=== PATIENT | female | born 1940 | race Caucasian/White ===

== ENCOUNTER 2020-02-20 15:20 | Inpatient (IN) | payer MEDICARE ==
[~2020-02-20] VITALS: Ht 162.6 cm; Wt 68.9 kg
[2020-02-20 16:26] LABS: BASOPHILS % (AUTO) 0.4 % (0.0-2.0); EOSINOPHILS % (AUTO) 0.3 % (0.0-6.0); HEMATOCRIT 41 % (39-51); HEMOGLOBIN 13.9 g/dL (13.5-17.5); LYMPHOCYTES % (AUTO) 14.3 % (20.0-44.0); MEAN CORPUSCULAR HGB CONC 34 g/dl (31.0-36.0); MEAN CORPUSCULAR VOLUME 97 fL (80-96); MONOCYTES # (AUTO) 0.7 /CMM (0.1-1.30); MONOCYTES % (AUTO) 9.5 % (2.0-12.0); NEUTROPHILS # (AUTO) 5.5 /CMM (1.8-8.9); NEUTROPHILS % (AUTO) 75.5 % (43.0-81.0); PLATELET COUNT (AUTO) 164 /CMM (150-450); RED BLOOD CELL COUNT(AUTO) 4.26 MIL/uL (4.5-6.0); WHITE BLOOD COUNT (AUTO) 7.3 K/uL (4.3-11.0)
[2020-02-20 16:34] LABS: CALCIUM, SERUM 9.4 mg/dL (8.5-10.1); CARBON DIOXIDE 25 mmol/L (21-32); CHLORIDE 101 mmol/L (98-107); CREATININE 0.7 mg/dL (0.6-1.3); GLUCOSE 109 mg/dL (74-106); POTASSIUM 3.3 mmol/L (3.5-5.1); SODIUM SERUM 137 mmol/L (136-145); UREA NITROGEN, BLOOD 13 mg/dL (7-18)
--- NOTE | 2020-02-20 16:36 | NUR ---
URINE SENT VIA STRAIGHT CATHETER.
[2020-02-20 16:49] LABS: ACETAMINOPHEN < 2 ug/ml (10-30); ALANINE AMINOTRANSFERASE 23 U/L (12-78); ALBUMIN 3.9 g/dL (3.4-5.0); ALCOHOL, BLOOD < 3 mg/dL (0-0); ALKALINE PHOSPHATASE 80 U/L (46-116); ASPARTATE AMINOTRANSFERASE 27 U/L (15-37); BILIRUBIN,DIRECT 0.2 mg/dL (0.0-0.2); BILIRUBIN,TOTAL 0.8 mg/dL (0.2-1.0); SALICYLATE 0.3 mg/dL (2.8-20.0); TOTAL PROTEIN, SERUM 6.9 g/dL (6.4-8.2)
[2020-02-20 17:28] LABS: APPEARANCE,URINE CLEAR (CLEAR); BILIRUBIN,URINE NEGATIVE (NEGATIVE); BLOOD, URINE MODERATE Ery/uL (NEGATIVE); COLOR,URINE YELLOW (YELLOW); KETONES,URINE 15 (NEGATIVE); LEUKOCYTE ESTERASE ,URINE NEGATIVE (NEGATIVE); NITRITE, URINE POSITIVE (NEGATIVE); PROTEIN,URINE NEGATIVE (NEGATIVE); UGLUCOSE NEGATIVE (NEGATIVE); UROBILINOGEN,URINE 0.2 EU/dL (0.2)
[2020-02-20] MEDS ORDERED: LOSA50TA39 PO (17:36)
--- NOTE | 2020-02-20 17:40 | NUR ---
MELVINA (SON) MOBILE NUMBER [phone]. HOME PHONE NUMBER [phone].
[2020-02-20 17:46] LABS: BACTERIA,URINE 4+ /HPF (None Seen); SQUAMOUS EPITHELIAL CELL,UR 0-2 /HPF (None Seen)
[2020-02-20] MEDS ORDERED: CEFTRIAXONE 1 G VIAL IM ONE (18:00)
[2020-02-20] MEDS ORDERED: CEFTRIAXONE 1 G VIAL ONE (18:02)
[2020-02-20] MEDS ORDERED: LIDOCAINE /MPF 1% VIAL 5 ML VIAL ONE (18:02)
--- NOTE | 2020-02-20 18:26 | NUR ---
UNABLE TO OBTAIN WILLY PSYCH BED PENDING RAPID COVID RESULT
--- NOTE | 2020-02-20 18:36 | NUR ---
NEGATIVE COVID RESULT
--- NOTE | 2020-02-20 18:40 | NUR ---
REPORT GIVEN TO GURPREET CEE AT [facility].
--- NOTE | 2020-02-20 20:09 | NUR ---
PT TRANSFERRED TO [facility] IN STABLE CONDITION
[2020-02-20] MEDS ORDERED: ZOLPIDEM TARTRATE 5 MG TABLET PO PRN (20:30)
[2020-02-20] MEDS ORDERED: BLOOD SUGAR DIAGNOSTIC 1 EACH STRIP IN ONE (20:30)
[2020-02-20] MEDS ORDERED: ACETAMINOPHEN 325 MG TABLET PO PRN (20:30)
[2020-02-20] MEDS ORDERED: LORAZEPAM 0.5 MG TABLET PO PRN (20:30)
[2020-02-21 01:30] VITALS: BP 147/82
--- NOTE | 2020-02-21 01:35 | NUR ---
GPS RN ADMITTING NOTE: ADMITTED A 79 Y/O FEMALE ON 02/20/20 @ 1999. PT IS ON A 5150 HOLD FOR DTS/GRAVELY DISABLED. PT WAS PLACED ON HOLD ON 02/20/2020 @ 1315. PER HOLD, PROFESSOR OF ARCHAEOLOGY WERE CALLED D/T PT WANDERING IN APARTMENT BUILDING, PARANOID, DISORGANIZED, THINKS NEIGHBORS ARE TRYING TO POISON HER WITH THE SAME POISON THAT WAS USED TO POISON "[place]NA [place]NA". THINKS HER FAMILY IS TRYING TO POISON HER SO SHE THROWS THEIR FOOD AWAY. PT CAN'T REMEMBER THE LAST TIME SHE SLEPT. PT WAS HEARING VOICES AND WAS DIFFICULT TO REDIRECT. UPON FACE TO FACE EVALUATION, PT PRESENTS A/O X2, BLUNTED AFFECT, CONFUSED, DISORGANIZED, HAVING AUDITORY HALLUCINATION, POOR HISTORIAN, COOPERATIVE, PASSIVE, AND REDIRECTABLE. PT SKIN ASSESSMENT DONE AND PICTURES PLACED IN CHART. PT BELONGINGS INVENTORIED AND CONTRABAND PLACED IN SAFE. PT HOME MEDICATIONS PLACED IN PHARMACY BOX. PT UNABLE TO SIGN ADMISSION PAPERS D/T MENTAL STATUS. PT DENIES SI, AT THIS TIME. PT MEDICAL HX IS HTN. PT WILL BE UNDER THE MEDICAL CARE OF NICHOLAS AND PSYCHIATRIC CARE OF DR. IRVING. BOTH HAVE BEEN INFORMED OF PT ADMISSION. PT ADVISED OF HER HOLD. PTS RIGHTS HANDBOOK AND PRESCRIPTION MEDICATION GUIDE GIVEN TO PT. BED IS IN LOCKED, LOWEST POSITION, BED ALARM IS ON. CARE PLAN STARTED, ALL PT CARE NEEDS HAVE BEEN MET AT THIS TIME. PT IS CURRENTLY SLEEPING ON HER BED. NO S/S OF DISTRESS. WILL CONTINUE TO MONITOR Q15MIN AND Q1 HR ROUNDS FOR SAFETY MOOD AND BEHAVIOR AND ENDORSE TO AM SHIFT.
--- NOTE | 2020-02-21 04:36 | NUR ---
GPS RN NOTES: CALLED [facility] TWICE AT [address] DENNIS TO RECONCILE PT MEDICATION AND ALSO TOLD HIM PT POTASSIUM LEVEL IS 3.3 AND MIGHT NEED REPLACEMENT. DR DENNIS SAID "OKAY" THAT HE WILL ADDRESS IT.
--- NOTE | 2020-02-21 06:47 | NUR ---
GPS RN CLOSING NOTES: PT AWAKE, ALERT AND ORIENTED X2. PT SLEPT 5HRS. CONFUSED, DISORIENTED, RESPONDING TO INTERNAL STIMULI, REDIRECTABLE. NO S/S OF DISTRESS. RESPIRATION EVEN AND UNLABORED WITH EQUAL RISE AND FALL OF THE SHIFT. ALL PT CARE NEEDS MET ANTICIPATED. STILL AWAITING MED RECON AND POTASSIUM REPLACEMENT ORDER BY DR DENNIS. WILL CONTINUE TO MONITOR AND ENDORSE TO AM SHIFT.
[2020-02-21 08:00] VITALS: BP 146/72
[2020-02-21] MEDS: QUETIAPINE FUMARATE 25 MG TABLET PO SCH ×2 (10:43→21:18)
[2020-02-21] MEDS: LOSARTAN POTASSIUM 50 MG TABLET PO SCH (10:44)
--- NOTE | 2020-02-21 10:44 | NUR ---
FAMILY CONTACT: SW contacted pts son Trip ([phone]) for collateral information and treatment/discharge planning. Per son, pt has been living alone all her life and states that in 2012 pt had sepsis which caused for her to be hospitalized. Son states that after that pt began exhibiting signs of OCD and bizarre behaviors. Son then stated that in 2014 pt had a stroke and began displaying symptoms of confusion. Per son, pt is a hoarder and believes that she may have Bipolar Disorder or Schizophrenia but states she has never been diagnosed. Per son, pt is hyperreligious and having visual/auditory hallucinations, delusions, and paranoia. Son states that he is currently seeking Probate Conservatorship and has a court hearing next week. Son states that he wishes for MD to sign a Capacity of Declaration form as he states pt has not seen a doctor in over a year due to paranoia. Son also states that he is trying to find placement for pt at an assisted living.
--- NOTE | 2020-02-21 12:48 | NUR ---
INITIAL DISCHARGE PLAN: Per susana Dominique ([phone]), he wishes for pt to be discharged to an assisted living. SW will help form a safe and proper discharge in collaboration with MD.
[2020-02-21 13:07] LABS: ALBUMIN 3.4 g/dL (3.4-5.0); BILIRUBIN,TOTAL 0.4 mg/dL (0.2-1.0); CALCIUM, SERUM 8.6 mg/dL (8.5-10.1); CREATININE 0.6 mg/dL (0.6-1.3); POTASSIUM 3.4 mmol/L (3.5-5.1); TOTAL PROTEIN, SERUM 6.2 g/dL (6.4-8.2)
[2020-02-21 16:00] VITALS: BP 120/54
[2020-02-21 19:46] VITALS: BP_SYST 133; BP_SYST 142; BP_DIAS 63; BP_DIAS 80
[2020-02-22 08:00] VITALS: BP 153/69
[2020-02-22] MEDS: LOSARTAN POTASSIUM 50 MG TABLET PO SCH (10:08)
[2020-02-22] MEDS: QUETIAPINE FUMARATE 25 MG TABLET PO SCH ×2 (10:09→21:09)
[2020-02-22 16:00] VITALS: BP 142/68
[2020-02-22] MEDS: LEVOFLOXACIN (250MG) 250 MG TABLET PO SCH ×2 (18:00→18:03)
--- NOTE | 2020-02-22 18:11 | NUR ---
PT. REFUSING LEVAQUIN-STATES ALLERGIC TO PCN.VERIFIED WITH PT. AND PHARM. MED LEVAQUIN AND PCN NOT RELATED,PT. STILL REFUSING MED.
--- NOTE | 2020-02-22 18:30 | NUR ---
araceli child welfare assistant notified of fact that pt. is refusing levaquin med.
[2020-02-22 20:18] VITALS: BP 152/85
[2020-02-23 08:00] VITALS: BP 148/74
[2020-02-23] MEDS: LOSARTAN POTASSIUM 50 MG TABLET PO SCH (08:32)
[2020-02-23] MEDS: QUETIAPINE FUMARATE 25 MG TABLET PO SCH ×2 (08:33→21:32)
[2020-02-23 16:00] VITALS: BP 134/68
[2020-02-23] MEDS: LEVOFLOXACIN (250MG) 250 MG TABLET PO SCH (17:21)
[2020-02-23 19:53] VITALS: BP 134/62
--- NOTE | 2020-02-24 06:56 | NUR ---
GPS RN CLOSING NOTES: PT AWAKE, ALERT AND ORIENTED X2. LAYING ON BED, CALM. MED COMPLAINT THIS SHIFT, WEEKLY SKIN CHECK DONE AND PICTURES PLACED IN PT. CHART. PT SLEPT 7HRS THIS SHIFT. NO BEHAVIORAL ISSUES THIS SHIFT. NO S/S OF DISTRESS. RESPIRATION EVEN AND UNLABORED WITH EQUAL RISE AND FALL OF THE CHEST. ALL PT CARE NEEDS MET ANTICIPATED. WILL CONTINUE TO MONITOR AND ENDORSE TO AM SHIFT.
[2020-02-24 08:00] VITALS: BP 144/76
[2020-02-24] MEDS: QUETIAPINE FUMARATE 25 MG TABLET PO SCH ×2 (09:15→21:20)
[2020-02-24] MEDS: LOSARTAN POTASSIUM 50 MG TABLET PO SCH (09:16)
[2020-02-24] MEDS: SULFAMETH/TRIMETH 800/160 MG 1 UDTAB TABLET PO SCH ×2 (13:16→21:20)
--- NOTE | 2020-02-24 15:00 | NUR ---
FAMILY CONTACT: DAMIEN contacted pts son Trip ([phone]) to provide him with updated information. DAMIEN informed him that MD is planning on discharging pt soon. SW also informed son that MD does not feel that pt lacks capacity at this time and therefore cannot assist him with capacity declaration form. DAMIEN discussed pts discharge plan and son stated he is looking into assisted living facilities as pt cannot return to her apartment and live alone and also mentioned that pt is facing eviction. SW also provided son with a list of SNF's. Son stated he needed time to digest the information and would call SW back to discuss discharge and placement.
--- NOTE | 2020-02-24 15:59 | NUR ---
INDIVIDUAL INTERVENTION: SW met with pt at bedside, pt was asleep and not easily roused by verbal cues.
[2020-02-24 16:00] VITALS: BP_SYST 148; BP_SYST 158; BP_DIAS 69; BP_DIAS 86
[2020-02-24 19:47] VITALS: BP 148/78
[2020-02-25 08:00] VITALS: BP 147/79
[2020-02-25] MEDS: SULFAMETH/TRIMETH 800/160 MG 1 UDTAB TABLET PO SCH ×2 (08:47→21:00)
[2020-02-25] MEDS: LOSARTAN POTASSIUM 50 MG TABLET PO SCH (08:47)
--- NOTE | 2020-02-25 14:52 | NUR ---
FAMILY CONTACT: DAMIEN contacted pts son Trip ([phone]) to discuss pts discharge plan. Son states he is waiting for his criminal attorney to give him a call at 1500 with an update on probate conservatorship hearing. Son states that he and sister are looking into an assisted living near their home and will follow-up with DAMIEN tomorrow to provide her with an update.
--- NOTE | 2020-02-25 15:07 | NUR ---
INDIVIDUAL INTERVENTION: SW encouraged pt to attend group milieu, pt refused stating that she rather stay in bed with "Lico" and continue praying. Pt was holding a napkin and cuddling it in her chest. Pt stated that she has been praying all day and all her prayers have been answered. Pt remains hyper methodist, confused, disorganized, and disoriented.
[2020-02-25 16:00] VITALS: BP 147/76
[2020-02-25] MEDS: QUETIAPINE FUMARATE 25 MG TABLET PO SCH (21:58)
--- NOTE | 2020-02-25 21:59 | NUR ---
GPS RN NOTE: REFUSED MEDICATION & AGGRESSIVE BEHAVIOR PT REFUSED SCHEDULED BACTRIM 800MG/160 MG PO AND SCHEDULED SEROQUEL 25MG PO @ 2157 , ADVISED THE PT 3X THE NEED FOR THE BACTRIM & SEROQUEL AND THE BENEFITS OF TAKING THE MEDICATION WELL THE RISK OF REFUSING THE MEDICATION 3X. PT CONTINUED TO REFUSE. PT WAS VERY LABILE, ATTEMPTED TO HIT STAFF PT YELLED "GET OUT GET OUT YOU'RE INTERRUPTING MY CONVERSATION IM NOT TAKING ANYTHING". PT CALMED DOWN AND WENT BACK TO TALKING TO SELF. WILL LET AM SHIFT KNOW AND CONTINUE TO MONITOR Q15MIN FOR SAFETY AND BEHAVIOR
[2020-02-26 08:00] VITALS: BP 145/51
[2020-02-26] MEDS: LOSARTAN POTASSIUM 50 MG TABLET PO SCH (09:00)
[2020-02-26] MEDS: SULFAMETH/TRIMETH 800/160 MG 1 UDTAB TABLET PO SCH ×2 (09:00→21:00)
--- NOTE | 2020-02-26 09:54 | NUR ---
GPS RN NOTE: PT REFUSED AM MEDICATIONS EXPLAIN RISK AND BENEFITS X3 PATIENT CONTINUE REFUSING. WILL CONTINUE MONITORING FOR SAFETY AND BEHAVIOR Q 15 MIN
[2020-02-26] MEDS: risperiDONE 0.25 MG TABLET PO SCH ×2 (10:00→21:00)
--- NOTE | 2020-02-26 10:24 | NUR ---
FAMILY CONTACT: SW contacted pts son Trip ([phone]) to provide him with an update on pts behavior. SW informed him that pt declined and is now psychotic; responding to voices and exit seeking. SW informed him that pt is more confused and disorganized and informed him that she has been hyperreligious and focused on God. SW informed him that pt refused to take her medication last night and that MD has changed her antipsychotic medication. SW informed him that as of today there is no discharge date. Son states that he has found a board and care for pt. SW will continue communicating with son as needed.
--- NOTE | 2020-02-26 20:00 | NUR ---
GPS-RN: OPENING NOTES RECEIVED PT SITTING IN CHAIR IN THE DINING ROOM. AWAKE AND ALERT. NO ACUTE DISTRESS NOTED. PT REMAINS CONFUSED, DISORGANIZED THOUGHTS, UNCOOPERATIVE, TALKING TO SELF. REORIENTATION PROVIDED. REFUSED INITIAL VITAL SIGNS TO BE TAKEN. DESPITE OF EDUCATION PROVIDED. SAFETY PRECAUTIONS IMPLEMENTED. WILL CONTINUE TO MONITOR Q15MIN ROUNDS FOR SAFETY AND BEHAVIOR.
[2020-02-26 20:15] VITALS: BP 157/88
--- NOTE | 2020-02-26 21:20 | NUR ---
GPS-RN NOTE: MEDICATION REFUSAL PATIENT REFUSED SCHEDULED MEDS RISPERDAL AND BACTRIM FOR TONIGHT. EDUCATED PATIENT REGARDING THE IMPORTANCE OF MEDICATION COMPLIANCE BUT PATIENT CONTINUES TO REFUSE X3. PATIENT STATES "I DON'T TAKE ANYTHING FROM THE STORE". "NO, I DON'T WANT IT". WILL CONTINUE TO MONITOR FOR PATIENT'S SAFETY.
--- NOTE | 2020-02-27 06:21 | NUR ---
GPS-RN NOTE: CLOSING NOTE PATIENT REMAINS CONFUSED, PREOCCUPIED ON HER OWN THOUGHTS, LAUGHING INAPPROPRIATELY, TALKING TO THE WALL TO HERSELF, UNCOOPERATIVE, EASILY GETS AGITATED/IRRITABLE. REORIENTATION PROVIDED. SAFETY PRECAUTIONS IMPLEMENTED. WILL CONTINUE TO MONITOR FOR PT'S SAFETY. WILL ENDORSE TO THE DAY SHIFT NURSE FOR CONTINUITY OF CARE.
[2020-02-27 08:00] VITALS: BP 121/55
[2020-02-27] MEDS: LOSARTAN POTASSIUM 50 MG TABLET PO SCH (09:00)
[2020-02-27] MEDS: SULFAMETH/TRIMETH 800/160 MG 1 UDTAB TABLET PO SCH ×2 (09:00→21:00)
[2020-02-27] MEDS: risperiDONE 0.25 MG TABLET PO SCH ×2 (09:00→21:00)
--- NOTE | 2020-02-27 09:49 | NUR ---
GPS/RN-NOTES PATIENT REFUSED ALL 0900AM MEDICATIONS,DESPITE EXPLANATION RISK AND BENEFITS. OFFERED X3 BUT PATIENT SCREAM AND YELLS AT THE INVESTMENT BANKER. STATED" GO AWAY I DON'T NEED ANY MEDICATIONS AT ALL". DR. PINO MADE AWARE OF THE PT. MEDICATION REFUSAL.
--- NOTE | 2020-02-27 11:21 | NUR ---
GPS/RN-NOTES PER DR. IRVING PATIENT AGREED TO TAKE MEDICATIONS. MANAGER INSTRUMENTATION AND CHARGE NURSE DID TALK AND OFFERED MEDICATIONS AGAIN BUT PATIENT STATED" DON'T TALK TO ME DON'T TOUCH ME". DR. IRVING DID TALK AGAIN AND EXPLAINED THE IMPORTANCE OF TAKING MEDICATIONS BUT PATIENT STILL REFUSED HER MEDICATIONS. RISPERDAL 0.25MG TABLET,[id number] TAB.,AND BACTRIM DS TAB. WAS DISCARDED WITNESS BY THE CHARGE NURSE
--- NOTE | 2020-02-27 11:26 | NUR ---
FAMILY CONTACT: DAMIEN contacted pts son Trip ([phone]) to provide him with an update on pts behavior. DAMIEN informed him that pt declined and is now psychotic; responding to voices, paranoid, and refusing to take her medication. DAMIEN informed him that pt has a UTI and is also refusing to take her antibiotic. DAMIEN informed son that MD has filed a petition for a medication capacity hearing. Son stated he is in agreement with treatment plan.
--- NOTE | 2020-02-27 11:30 | NUR ---
INDIVIDUAL INTERVENTION WITH MD: DAMIEN and met with pt to discuss current symptoms. Pt refused to speak with MD and pt presents paranoid and delusional with irritable/agitated mood. Pt has been refusing medication and MD filed for a RIESE Hearing.
[2020-02-27 16:00] VITALS: BP 155/88
--- NOTE | 2020-02-27 21:24 | NUR ---
GPS-RN NOTE: MEDICATION REFUSAL PATIENT REFUSED RISPERDAL AND BACTRIM ON SCHEDULE FOR TONIGHT. EDUCATED PATIENT REGARDING THE IMPORTANCE OF MEDICATION COMPLIANCE BUT PATIENT CONTINUES TO REFUSE X3. PATIENT STATES "NO, I DON'T WANT IT". WILL CONTINUE TO MONITOR FOR PATIENT'S SAFETY.
[2020-02-28 08:00] VITALS: BP 155/63
[2020-02-28] MEDS: SULFAMETH/TRIMETH 800/160 MG 1 UDTAB TABLET PO SCH ×3 (08:46→21:00)
[2020-02-28] MEDS: LOSARTAN POTASSIUM 50 MG TABLET PO SCH (08:50)
[2020-02-28] MEDS: risperiDONE 0.25 MG TABLET PO SCH (08:50)
[2020-02-28] MEDS: OLANZAPINE 2.5 MG TABLET PO SCH ×3 (12:00→20:44)
[2020-02-28] MEDS: OLANZAPINE 10 MG VIAL IM PRN ×2 (12:29→20:32)
--- NOTE | 2020-02-28 12:29 | NUR ---
GPS RN NOTES PATIENT ON ALFRED; REFUSED ORAL ZYPREXA; WAS TOLD THAT IF SHE REFUSES SHE WILL RECEIVE ZYPREXA IM. PATIENT CONTINUED TO REFUSE. IM ZYPREXA ADMINISTERED WITH THE HELP OF STAFF; PATIENT COMBATIVE, THROWING FISTS AND SCREAMING.
--- NOTE | 2020-02-28 13:47 | NUR ---
GROUP THERAPY: Pt is unable to attend group as pt is paranoid and delusional with agitated mood. Pt has not been complaint with medication and was RIESE'd on this present day. Pt is only alert and oriented x1; to self.
--- NOTE | 2020-02-28 14:47 | NUR ---
FAMILY CONTACT: DAMIEN contacted pts son Trip ([phone]) to provide him with an update on pts RIESE status. SW left a voicemail informing him that pt was RIESED and she is now receiving medication via injection as she continues to refuse PO.
--- NOTE | 2020-02-28 14:55 | NUR ---
FAMILY CONTACT: SW received a call from pts son Trip ([phone]) confirming SW voicemail. SW also informed him that SW received a call from Jamarcus Lemos, court appointed camp counselor ([phone]) who will be authorized to come assess pts mental capacity due to sons petition for probate conservatorship. Son stated that he is aware and stated he does have a court hearing next week.
--- NOTE | 2020-02-28 14:59 | NUR ---
GEOLOGICAL SCOUT: DAMIEN received a call from Jamarcus Lemos, court appointed tariff counsel ([phone]) requested permission to come assess pt for mental capacity due to her son submitting petition for probate conservatorship. DAMIEN advised him to fax court order and negative COVID test. DAMIEN also provided him with Director or Returns Clerk contact number to request permission to enter the unit.
--- NOTE | 2020-02-28 15:45 | NUR ---
SET MAKING MACHINE OPERATOR: DAMIEN received faxed documents from Jamarcus Lemos, court appointed residential child care counselor ([phone]) and placed in pts chart.
--- NOTE | 2020-02-28 20:40 | NUR ---
NURSES NOTES: PATIENT REFUSED HER NIGHT SCHEDULED MEDICATIONS. PER PATIENT " GO AWAY AND DO TOUCH ME , I DON'T TAKE ANY MEDICATIONS AT NIGHT" TIN PLATER EXPLAINED THE RISKS AND BENEFITS OF THE SAID MEDICATIONS. PATIENT CONTINUED TO REFUSED. WILL RELAY TO DAY SHIFT NURSE. WILL RELAY TO MD. Addendum: 02/28/20 at 2138 by JHON BURGOS PATIENT IS JC, FOR THE REFUSAL OF HER ZYPREXA PO MEDICATION- ZYPREXA 5MG IM GIVEN PER ORDER.
[2020-02-29 08:00] VITALS: BP 163/85
[2020-02-29] MEDS: OLANZAPINE 2.5 MG TABLET PO SCH ×2 (08:55→20:48)
[2020-02-29] MEDS: SULFAMETH/TRIMETH 800/160 MG 1 UDTAB TABLET PO SCH (08:55)
[2020-02-29] MEDS: LOSARTAN POTASSIUM 50 MG TABLET PO SCH (08:55)
[2020-02-29] MEDS: OLANZAPINE 10 MG VIAL IM PRN ×2 (08:56→20:32)
--- NOTE | 2020-02-29 08:56 | NUR ---
GPS/RN PT REFUSED PO MEDS. OFFERED X3. ZYPREXA 5MG IM GIVEN ORDERED.
[2020-02-29 09:00] VITALS: BP 163/85
--- NOTE | 2020-02-29 09:30 | NUR ---
dr. nayak aware of bp level ant the fact pt. refusing cozaar.
--- NOTE | 2020-02-29 09:30 | NUR ---
REFUSED AM MEDS INCLUDING COZAAR.BP ELEVATED.
[2020-02-29 16:00] VITALS: BP 129/77
--- NOTE | 2020-02-29 18:45 | NUR ---
NO CHANGE IN STATUS OTHER THAN APPETITE BETTER.
[2020-02-29 20:14] VITALS: BP 142/95
--- NOTE | 2020-02-29 20:49 | NUR ---
GPS RN NOTE: PT. REFUSED SCHEDULED 2100 MEDICATION ZYPREXA. PATIENT IS RIESED FOR THE REFUSAL OF HER ZYPREXA PO MEDICATION- ZYPREXA 5MG IM GIVEN PER ORDER. WILL CONTINUE TO MONITOR FOR SAFETY AND BEHAVIOR.
[2020-03-01 08:00] VITALS: BP 164/84
[2020-03-01] MEDS: OLANZAPINE 2.5 MG TABLET PO SCH ×3 (08:34→21:00)
[2020-03-01] MEDS: OLANZAPINE 10 MG VIAL IM PRN ×3 (08:34→21:38)
[2020-03-01] MEDS: LOSARTAN POTASSIUM 50 MG TABLET PO SCH (08:35)
--- NOTE | 2020-03-01 08:35 | NUR ---
RN-CO: PATIENT REFUSED TO TAKE HER AM MEDS.
[2020-03-01 16:00] VITALS: BP 123/78
--- NOTE | 2020-03-01 20:30 | NUR ---
GPS-RN NOTE: PATIENT REFUSED WEEKLY SKIN ASSESSMENT.
[2020-03-02] MEDS: LOSARTAN POTASSIUM 50 MG TABLET PO SCH (08:26)
[2020-03-02] MEDS: OLANZAPINE 2.5 MG TABLET PO SCH ×5 (08:26→21:00)
[2020-03-02] MEDS: OLANZAPINE 10 MG VIAL IM PRN ×4 (08:31→22:02)
--- NOTE | 2020-03-02 08:39 | NUR ---
RN NOTE- PT REFUSED VS AND MORNING MEDS. ZYPREXA 5MG IM GIVEN W STAFF ASSISTANCE.
--- NOTE | 2020-03-02 10:24 | NUR ---
RN NOTE- ZYPREXA 1030 DOSE HELD DUE TO RECENT ZYPREXA IM ADMINISTRATION AND SOMNOLENCE. PT SLEEPING SOUNDLY
--- NOTE | 2020-03-02 11:43 | NUR ---
DIRECT CARE COUNSELOR: met with Jamarcus Lemos, court appointed marriage counselor ([phone]) who came to assess pt for mental capacity due to her son submitting petition for probate conservatorship. Jamarcus stated that he will review the information and discuss with patient's son, Trip ([phone]).
--- NOTE | 2020-03-02 11:45 | NUR ---
RN NOTE- PT ZYPREXA ORDER CHANGED BY DR IRVING TO ZYPREXA 2.5 MG QID IF REFUSES GIVE ZYPREXA 5 MG IM. CLARIFIED DOSE W DR IRVING. CONTINUE ORDER GIVEN.
--- NOTE | 2020-03-02 12:39 | NUR ---
RN NOTE- REFUSED ZYPREXA 1300 DOSE. ZYPREXA 5 MG IM GIVEN W STAFF ASSIST
--- NOTE | 2020-03-02 13:56 | NUR ---
FAMILY CONTACT: SW spoke with patient's son Trip ([phone]) regarding patient's treatment and discharge plan and discussed Jamarcus Lemos's court appointed cosmetic counselor ([phone]) visit today. Trip provided this story writer with the information they secured for the patient's placement: [address] [address] arts administrator or manager Charisma Ryo ([phone]).
[2020-03-02 16:00] VITALS: BP 157/78
--- NOTE | 2020-03-02 19:50 | NUR ---
RECEIVED PT IN HER ROOM LAYING IN BED AWAKE. PT IS A/OX1. NO ACUTE DISTRESS NOTED. BREATHING EVEN AND UNLABORED. NO PAIN AT THIS TIME. PT IS PARANOID, FORGETFUL,CONFUSED,UNMOTIVATED, EASILY AGITATED, ANGRY, UNCOOPERATIVE. PT ON REISED. REORIENTATION PROVIDED. UPON CHECKING PTS VITALS, PT SCREAMING YELLING AND INCREASED AGITATION. B/P AND PULSE HIGH DUE TO PT YELLING AND SCREAMING WHILE CHECKING. PT REFUSED TO RETAKE VITALS V/S. PT REFUSED PRN ATIVAN FOR ANXIOUS. EXPLAIN RISKS AND BENEFITS. PT STILL REFUSED X3. PT CALM AFTER STAFF AND NURSE LEFT HER ROOM. PT QUIET AND WANTS TO BE ALONE. WILL TRY AGAIN LATER THOUGHT THE NIGHT. SAFETY PRECAUTIONS IMPLEMENTED. WILL CONTINUE TO MONITOR Q15MIN ROUNDS FOR SAFETY AND BEHAVIOR.
[2020-03-02 19:59] VITALS: BP 195/85
[2020-03-02 22:00] VITALS: BP 134/81
--- NOTE | 2020-03-02 22:17 | NUR ---
GPS RN NOTE: REFUSED ZYPREXA PO DUE. ZYPREXA 5 MG IM GIVEN W STAFF ASSIST
[2020-03-03 08:00] VITALS: BP 164/88
[2020-03-03] MEDS: OLANZAPINE 2.5 MG TABLET PO SCH (08:33)
[2020-03-03] MEDS: LOSARTAN POTASSIUM 50 MG TABLET PO SCH (08:33)
--- NOTE | 2020-03-03 09:00 | NUR ---
RN NOTE- PT CONTINUED REFUSAL OF RX DR IRVING TO SEE PT . PO INTAKE FAIR WITHDRAWN ISOLATIVE MUMBLING TO SELF
[2020-03-03] MEDS: OLANZAPINE 10 MG VIAL IM PRN ×3 (09:54→20:33)
--- NOTE | 2020-03-03 11:18 | NUR ---
RN NOTE- DR IRVING AT UNIT E[facility]LIER. DISCUSSED ZYPREXA RX, PT REFUSAL AND MEDICATION REGIMEN. DR IRVING CHANGED MEDICATION REGIMEN. ORDERS NOTED
[2020-03-03] MEDS: risperiDONE-M 0.5 MG TAB.RAPDIS PO SCH ×3 (13:00→20:30)
--- NOTE | 2020-03-03 13:54 | NUR ---
RN NOTE- PT REFUSED NEW RISPERDAL ORDER. ZYPREXA 2.5 MG GIVEN IM PER DR IRVING ORDERS.
[2020-03-03 16:00] VITALS: BP 128/57
--- NOTE | 2020-03-03 18:00 | NUR ---
RN NOTE- PT ASLEEP FOR RISPERDAL 1700 DOSE. NOT GIVEN
[2020-03-03 20:07] VITALS: BP 140/63
--- NOTE | 2020-03-03 20:38 | NUR ---
GPS RN NOTE: PT REFUSED RISPERDAL PO ORDER. VITALS CHECKED WNL. ZYPREXA 2.5 MG GIVEN IM. CONTINUE TO MONITOR.
[2020-03-04 08:00] VITALS: BP 130/88
[2020-03-04] MEDS: risperiDONE-M 0.5 MG TAB.RAPDIS PO SCH (09:00)
[2020-03-04] MEDS: LOSARTAN POTASSIUM 50 MG TABLET PO SCH (09:00)
[2020-03-04] MEDS: OLANZAPINE 10 MG VIAL IM PRN (09:45)
[2020-03-04] MEDS: HALOPERIDOL 5 MG TABLET PO SCH ×3 (12:44→21:00)
[2020-03-04] MEDS: HALOPERIDOL LACTATE INJ 5 MG/ML VIAL IM PRN ×3 (12:48→21:33)
[2020-03-04 16:00] VITALS: BP 149/72
--- NOTE | 2020-03-04 21:46 | NUR ---
RN NOTE- REFUSAL HALDOL PO MEDICATION PT REFUSED HALDOL 2.5 MG PO.AND HALDOL 2.5 MG IM GIVEN PER MD ORDERS, WILL CONTINUE TO MONITOR.
[2020-03-04 22:00] VITALS: BP 123/69
--- NOTE | 2020-03-05 06:34 | NUR ---
GPS RN NOTES: PT. RESTING IN HER ROOM, CALM NOTED AT THIS TIME . NO S/S OF DISTRESS NOTED ,NO CHANGE OF CONDITION NOTED , ALL CARE NEEDS MET ANTICIPATED. WILL CONTINUE TO MONITOR FOR SAFETY BEHAVIOR, AND ENDORSE TO AM SHIFT FOR CONTINUITY OF CARE.
[2020-03-05 08:00] VITALS: BP 152/78
--- NOTE | 2020-03-05 08:00 | NUR ---
GPS RN OPENING NOTES RECEIVED PATIENT IN BED SLEEPING BUT EASILY AROUSABLE BY NAME AND LIGHT TOUCH, PATIENT IN NO APPARENT RESPIRATORY DISTRESS NOTED. PATIENT DENIES PAIN AT THIS TIME, WILL CONTINUE TO MONITOR Q15MIN FOR SAFETY AND BEHAVIOR
[2020-03-05] MEDS: LOSARTAN POTASSIUM 50 MG TABLET PO SCH (08:57)
[2020-03-05] MEDS: HALOPERIDOL 5 MG TABLET PO SCH ×4 (08:57→21:00)
[2020-03-05] MEDS: HALOPERIDOL LACTATE INJ 5 MG/ML VIAL IM PRN ×3 (09:06→16:36)
--- NOTE | 2020-03-05 09:08 | NUR ---
GPS/RN NOTES PATIENT REFUSED HALDOL 2.5 MG 0.5 TAB AND COZAAR 50 MG 1 TAB, MEDICATION IS ALREADY OPEN AND WASTED. BP 152/78 P 69, EXPLAINED THE RISK AND BENEFITS PATIENT STILL REFUSING. WILL CONTINUE TO MONITOR.
--- NOTE | 2020-03-05 15:25 | NUR ---
GPS RN NOTES PATIENT REFUSED TO EAT BREAKFAST AND LUNCH EXPLAINED THE RISK AND BENEFITS PATIENT STILL REFUSING. WILL CONTINUE TO MONITOR.
[2020-03-05 16:00] VITALS: BP 160/96
--- NOTE | 2020-03-05 18:22 | NUR ---
GPS RN CLOSING NOTES: PATIENT KEEP GOING IN AND OUT OF THE ROOM, REMOVING THE CLOTHES WALKING THE HALLWAY NAKED AND VERBALIZING THAT SHE WANT TO GO HOME, SHE WANT TO TALK TO THE DOCTOR. PATIENT IN NO APPARENT RESPIRATORY DISTRESS NOTED. PATIENT DENIES PAIN AT THIS TIME. WILL ENDORSED TO ASSESSMENT EXPERT FOR CONTINUITY OF CARE
--- NOTE | 2020-03-05 18:35 | NUR ---
GPS RN CLOSING NOTES: PATIENT IS ON BED, PATIENT IN NO APPARENT RESPIRATORY DISTRESS NOTED. NO SIGN AND SYMPTOM OF PAIN AT THIS TIME. PATIENT IS UNCOOPERATIVE, REFUSING DINNER AND ORAL MEDICATION. PATIENT STAY IN THE BED THE WHOLE SHIFT. WILL ENDORSED TO PAEDIATRIC PHYSIOTHERAPIST FOR CONTINUITY OF CARE
[2020-03-05 19:50] VITALS: BP 161/81
[2020-03-05 23:00] VITALS: BP 135/78
--- NOTE | 2020-03-05 23:34 | NUR ---
RN NOTES : PT. MED COMPLIANT AT 2100 , PT. TOOK SCHEDULE HALDOL 2.5 MG PO , AND OFFERED FLUID AND SNACKS TOLERATED, WILL CONTINUITY WITH CARE .
--- NOTE | 2020-03-06 06:29 | NUR ---
GPS RN NOTES: PT. RESTING IN HER ROOM, CALM NOTED AT THIS TIME . NO S/S OF DISTRESS NOTED ,NO CHANGE OF CONDITION NOTED , ALL CARE NEEDS MET ANTICIPATED. PT. WAS PO MED COMPLIANT ,WILL CONTINUE TO MONITOR FOR SAFETY BEHAVIOR, AND ENDORSE TO AM SHIFT FOR CONTINUITY OF CARE.
[2020-03-06 08:00] VITALS: BP 154/78
[2020-03-06] MEDS: LOSARTAN POTASSIUM 50 MG TABLET PO SCH (08:50)
[2020-03-06] MEDS: HALOPERIDOL 5 MG TABLET PO SCH ×4 (08:50→20:45)
--- NOTE | 2020-03-06 09:00 | NUR ---
RN NOTE- PT QUIET, ISOLATIVE MED COMPLIANT THIS MORNING PO INTAKE FAIR MINIMAL INTERACTION REFUSES TO ANSWER QUESTIONS WITHDRAWN
[2020-03-06 16:00] VITALS: BP 147/81
[2020-03-06 19:54] VITALS: BP 143/69
--- NOTE | 2020-03-06 21:50 | NUR ---
RN NOTE- PT. CALM COOPERTIVE AT THIS TIME, NO ACUTE DISTRESS NOTED QUIET, ISOLATIVE ,WITHDRAWN ,MED COMPLIANT, OFFERED PO INTAKE TOLERATED, MINIMAL INTERACTION , WILL CONTINUE WITH CARE
--- NOTE | 2020-03-07 06:57 | NUR ---
GPS RN NOTES: PT. RESTING IN HER ROOM, CALM NOTED AT THIS TIME . NO S/S OF DISTRESS NOTED ,NO CHANGE OF CONDITION NOTED , ALL CARE NEEDS MET ANTICIPATED. AND PO MED COMPLIANT ,WILL CONTINUE TO MONITOR FOR SAFETY BEHAVIOR, AND ENDORSE TO AM SHIFT FOR CONTINUITY OF CARE.
[2020-03-07 08:00] VITALS: BP 157/82
[2020-03-07] MEDS: LOSARTAN POTASSIUM 50 MG TABLET PO SCH (10:19)
[2020-03-07] MEDS: HALOPERIDOL 5 MG TABLET PO SCH ×4 (10:20→21:31)
[2020-03-07 16:00] VITALS: BP 151/63
--- NOTE | 2020-03-07 18:30 | NUR ---
APPEARS TO BE ASLEEP AT PILL TIME,RN SPOKE FIRMLY,PT. AWAKE AND MEDS GIVEN
[2020-03-07 20:46] VITALS: BP 135/71
--- NOTE | 2020-03-08 07:04 | NUR ---
GPS RN OPENING NOTE RECEIVED PT RESTING IN BED AT THIS TIME, PT IS A/O X 2-3, GUARDED, SUSPICIOUS,MED COMPLIANT AND COOPERATIVE AT TIME, NEEDS ENCOUARGEMENT, PT DENIES SI/HI, PT NOTED TALKING TO SELF, DENIES PAIN AT THIS TIME, NO SOB NOTED, NO S/S OF ANY ACUTE DISTRESS NOTED. NO C/O PAIN AT THIS TIME. RESPIRATIONS ARE EVEN AND UNLABORED WITH EQUAL RISE AND FALL IN CHEST. SAFETY, PRECAUTION IN PLACE AND MAINTAINED AT ALL TIMES. BED IN LOWEST LOCKED POSITION, HOB ELEVATED, SIDE RAILS UP X 2, CALL LIGHT WITHIN REACH. WILL CONTINUE TO MONITOR Q15MIN FOR SAFETY AND BEHAVIOR
[2020-03-08 08:00] VITALS: BP 155/85
[2020-03-08] MEDS: HALOPERIDOL 5 MG TABLET PO SCH ×4 (08:45→21:05)
[2020-03-08] MEDS: LOSARTAN POTASSIUM 50 MG TABLET PO SCH (08:45)
[2020-03-08 16:00] VITALS: BP 107/65
--- NOTE | 2020-03-08 18:35 | NUR ---
GPS RN CLOSING NOTES PT RESTING IN BED AT THIS TIME. PT REMAINED STABLE THROUGHOUT SHIFT. ALL CARE, NEEDS, MEDICATIONS, AND TREATMENT ADMINISTERED ANTICIPATED PER ORDER. PT KEPT CLEAN AND DRY. ASPIRATION, FALL AND SAFETY PRECAUTION IN PLACE AND MAINTAINED AT ALL TIMES. BED IN LOWEST LOCKED POSITION, HOB ELEVATED, SIDE RAILS UP X 2, CALL LIGHT WITHIN REACH. WILL ENDORSE TO ASSEMBLY INSPECTOR HELPER NURSE FOR GUNNER
[2020-03-08 20:03] VITALS: BP 149/72
[2020-03-09 08:00] VITALS: BP 153/79
[2020-03-09] MEDS: HALOPERIDOL 5 MG TABLET PO SCH ×4 (08:27→20:42)
[2020-03-09] MEDS: LOSARTAN POTASSIUM 50 MG TABLET PO SCH (08:27)
--- NOTE | 2020-03-09 09:00 | NUR ---
RN NOTE- PT ALERT ORIENTED TO PERSON PLACE PURPOSE (KNEW THIS RN BY NAME) MED COMPLIANT SMILED THIS MORNING EATING WELL DENIES ALL IMPROVED
--- NOTE | 2020-03-09 11:32 | NUR ---
RN NOTE- PT HAD UTI AND WAS PLACED ON BACTRIM AND PT TOOK FOR A FEW DAYS BEFORE BECOMING NON MED COMPLIANT. I PHONED DR BELLAMY AND ASKED IF HE WANTED TO START ABX AGAIN OR DO UA CX AND HE SAID THREE DAYS BACTRIM IS THE TX. NO NEW ORDERS.
[2020-03-09 16:00] VITALS: BP 136/72
[2020-03-09 20:28] VITALS: BP 138/77
[2020-03-10 07:34] LABS: CALCIUM, SERUM 9.2 mg/dL (8.5-10.1); CREATININE 0.6 mg/dL (0.6-1.3)
[2020-03-10 08:00] VITALS: BP 150/78
[2020-03-10] MEDS: HALOPERIDOL 5 MG TABLET PO SCH ×5 (08:34→21:24)
[2020-03-10] MEDS: LOSARTAN POTASSIUM 50 MG TABLET PO SCH (08:34)
--- NOTE | 2020-03-10 08:48 | NUR ---
FAMILY CONTACT: DAMIEN spoke with patient's son Trip ([phone]) and informed him MD is discharging pt tomorrow. Son states he will call [facility] and arrange everything for tomorrow. Son states he will call SW to confirm if [facility] is able to take pt tomorrow.
--- NOTE | 2020-03-10 09:00 | NUR ---
RN NOTE- PT CALM INTERACTIVE SITTING IN CHAIR, A BIT CONFUSED THOUGH SMILING AND DIRECTABLE. PO INTAKE GOOD MEDICATION COMPLIANT NEEDS ATTENDED
--- NOTE | 2020-03-10 12:22 | NUR ---
FACILITY CONTACT: DAMIEN received a call from Charisma Roy, ([phone]) church communications administrator at [address] [address] stating that pt is able to be discharged to their facility tomorrow and is requested a COVID test and TB Chest Xray and a physicians report. DAMIEN provided fax number for completion of Physicians report. Addendum: 03/10/20 at 1224 by DANETTE QUEZADA
--- NOTE | 2020-03-10 15:00 | NUR ---
RN NOTE- CALLED RADIOLOGY REGARDING ORDERED CXR FOR PLACEMENT TOMORROW. WILL VISIT UNIT AND OBTAIN
[2020-03-10 16:00] VITALS: BP 149/78
--- NOTE | 2020-03-10 16:40 | NUR ---
RN NOTE- CXR DONE. RESULTS NORM
--- NOTE | 2020-03-10 17:42 | NUR ---
RN NOTE- COVID RESULTS NEGATIVE
[2020-03-10 20:14] VITALS: BP 129/65
[2020-03-11 08:00] VITALS: BP 157/77
[2020-03-11 08:12] VITALS: BP 157/77
[2020-03-11] MEDS: LOSARTAN POTASSIUM 50 MG TABLET PO SCH (08:12)
[2020-03-11] MEDS: HALOPERIDOL 5 MG TABLET PO SCH (08:12)
--- NOTE | 2020-03-11 09:17 | NUR ---
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
--- NOTE | 2020-03-11 09:35 | NUR ---
DISCHARGE NOTE: Pt will be discharged between 11:00-11:30am via facility transport to [facility] [id number] [place] [address] ([phone]). Patient's son Trip ([phone]) has been notified and agrees with discharge plan. Pts mood is labile with congruent affect. Pt denied suicidal/homicidal ideation and pt is responding to auditory hallucinations. Pt is alert and oriented x2, is ambulatory and appropriately dressed. Pt will be under the care of Psychiatrist: Dr Sunil Valencia [address] [place] [address] and Quality Assurance Tech: Dr. Wilkinson [address] [place] [address] ([phone]). The multidisciplinary exit care form was done, printed, signed, and given to the patient.
--- NOTE | 2020-03-11 11:38 | NUR ---
[employer]ODITY MANAGER NOTE: PATIENT DISCHARGED TODAY AT 1130 TO FACILITY TRANSPORT TO [facility] [address] [facility] , [place] PATIENT LEFT THE UNIT AMBULATORY ACCOMPANIED BY 2 STAFF TO THE MAIN LOBBY AND PICKED UP BY TRANSPORT CARE PATIENT SON MELVINA HAS BEEN NOTIFIED. PATIENT IS IN STABLE CONDITION. VSS. NO ACUTE DISTRESS NOTED. NO COMPLAINTS. COMPLIANT WITH MEDICATION MANAGEMENT. COOPERATIVE WITH PLAN OF CARE. PSYCHIATRIC TREATMENT PLANS MET. MEDICAL TREATMENT PLANS DEFERRED FOR CONTINUAL MONITORING. DENIES SI/HI/VAH AT THE TIME OF DISCHARGE. SKIN CHECK DONE PICTURE IN THE CHART EDUCATED PATIENT ABOUT AFTERCARE WITH COPY PROVIDED. RETURNED PERSONAL BELONGINGS TO PATIENT. MEDICATIONS RX FAX TO BOARD AND CARE REPORT GIVEN TO DAX . DR IRVING ORDER DC HOLD. PT WAS SEEN AND EXAMINE BY DR PINO RX DONE, EXIT CARE DONE PRINTED PT REFUSED TO SIGN , PATIENT REFUSED PNEUMONIA AND FLU VACCINE AT THIS TIME .
== END 2020-03-11 11:30 | disposition home or self-care (01) | DRG 885 ==
LOC: ER 15:23 → EDSEX 15:23 → GPS 18:47
PROVIDERS: ADMIT Psychiatry & Neurology Psychiatry; ATTEND Internal Medicine
DX: F29 Unspecified psychosis not due to a substance or known physiological condition (principal); F03.91 Unspecified dementia, unspecified severity, with behavioral disturbance; N39.0 Urinary tract infection, site not specified; G93.40 Encephalopathy, unspecified; R45.851 Suicidal ideations; F41.9 Anxiety disorder, unspecified; I10 Essential (primary) hypertension; Z86.59 Personal history of other mental and behavioral disorders; Z88.4 Allergy status to anesthetic agent; Z88.0 Allergy status to penicillin; Z73.6 Limitation of activities due to disability; E87.6 Hypokalemia; B96.89 Other specified bacterial agents as the cause of diseases classified elsewhere
CPT/HCPCS: 36415; 71045-TC; 80048-TC; 80053-TC; 80061-TC; 80076-TC; 80305; 81000-TC; 82962-TC; 85025-TC; 87081-TC; 87086-TC; 87186-TC; 97116-TC; 97530-TC; G0480; J0696; J1630; J3490